=== PATIENT | male | born 1990 | race Caucasian/White ===

== ENCOUNTER 2016-07-20 14:01 | Day surgery (SDC) | payer OTHER ==
[~2016-07-20] VITALS: Ht 180.3 cm; Wt 91.0 kg
[2016-07-20] MEDS ORDERED: CLARITIN 1010 MG/TAB PO (14:21)
[2016-07-20] MEDS ORDERED: TIROSINT150 MC1 PO (14:22)
[2016-07-20 14:31] VITALS: BP 138/87; PULSE 83; TEMP 98
[2016-07-20 16:00] VITALS: BP 117/81; PULSE 79; TEMP 99.3
[2016-07-20 16:15] VITALS: BP 114/73; PULSE 82
== END 2016-07-20 16:35 | disposition home or self-care (01) ==
LOC: SDCO 14:01
DX: R19.4 Change in bowel habit (principal); R19.5 Other fecal abnormalities; K64.0 First degree hemorrhoids; Z85.850 Personal history of malignant neoplasm of thyroid
CPT/HCPCS: J2250; J3010